=== PATIENT | male | born 2000 | race African-American/Black ===

== ENCOUNTER → 2018-04-15 | Emergency (ER) | LOC: COL.ER 16:26 | DX: Z72.9 Problem related to lifestyle, unspecified (principal) ==

== ENCOUNTER 2018-04-25 11:01 | Day surgery (SDC) | payer SELFPAY ==
[~2018-04-25] VITALS: Ht 172.7 cm; Wt 88.8 kg
[2018-04-25 11:45] VITALS: BP 152/48; PULSE 100; TEMP 98.2
[2018-04-25] MEDS ORDERED: ADVIL200 MG PO (11:51)
[2018-04-25 18:15] VITALS: BP 156/69; PULSE 66; TEMP 98.2
[2018-04-25 18:30] VITALS: BP 144/71; PULSE 79
[2018-04-25 18:45] VITALS: BP 126/61; PULSE 86
[2018-04-25 20:00] VITALS: BP 146/68; PULSE 87
[2018-04-25 21:10] VITALS: BP 148/63; PULSE 85; TEMP 98.6
== END 2018-04-25 22:20 | disposition home or self-care (01) ==
LOC: SDCO 11:01 → SURG 18:09 → SDCO 22:20
DX: S82.432A Displaced oblique fracture of shaft of left fibula, initial encounter for closed fracture (principal); S93.422A Sprain of deltoid ligament of left ankle, initial encounter; S93.492A Sprain of other ligament of left ankle, initial encounter; X58.XXXA Exposure to other specified factors, initial encounter
CPT/HCPCS: OP; C1713; J0690; J1100; J1885; J2405; J2704; J3010; J7120